=== PATIENT | female | born 1955 | race Caucasian/White ===

== ENCOUNTER → 2017-03-27 | Day surgery (SDC) | payer BC ==
[~2017-03-27] MED LIST: LACTATED RINGER'S 1000 ML INJ 1,000 ML ONE; LIDOCAINE 1%/EPINEPHrine 1:100,000 SOLN 20 ML VIAL ONE; MIDAZOLAM HCL 2 MG/2 ML VIAL ONE; ONDANSETRON HCL 4 MG/2 ML VIAL IV PUSH ONE; PROPOFOL 500 MG/50 ML BTL IV ONE; SODIUM CHLOR 0.9% 250 ML INJ 250 ML IV ONE; VANCOMYCIN HCL 1000 MG VIAL ONE
--- NOTE | 2017-03-27 10:33 | TN ---
cc: RENAE BUTLER,VICENTA MARQUES M.D., M.D. DATE OF SURGERY: 03/27/2017 PREOPERATIVE DIAGNOSIS Left breast microcalcifications. POSTOPERATIVE DIAGNOSIS Left breast microcalcifications. PROCEDURE Left breast needle-localized lumpectomy. SURGEON Dr. Óscar Velez. SIZING [employer] BANDER Celeste Lee, MS III ANESTHESIA TIVA plus local. INDICATIONS This is a very pleasant 61-year-old woman who was discovered to have microcalcifications on screening mammography. She underwent attempted stereotactic biopsy, unfortunately, no microcalcifications were retrieved. She was sent for surgical lumpectomy. INTRAOPERATIVE FINDINGS Successful removal of clip and microcalcifications as seen on specimen mammography by Dr. Estevez of radiology. Specimen was sent to pathology. Estimated blood loss less than 2 mL. DESCRIPTION OF PROCEDURE IN DETAIL The patient was identified as Angelia Givens, taken to the operating room and placed in the supine position following left breast needle localization. Sequential compression devices were placed on bilateral lower extremities. Following IV sedation by Anesthesia the left breast was prepped and draped in usual sterile fashion with Betadine. A time-out procedure was performed. Following completion time-out procedure to everyone's satisfaction within the room a marking pen was used to fanny the proposed incision along the lateral areolar edge along the needle localization entry site. This area was infiltrated with local anesthetic and the incision carried out with scalpel. Hemostasis was controlled with electrocautery. Using combination of sharp dissection and electrocautery the specimen was removed from the surrounding breast tissue, marked with a short stitch superior anterior and a long stitch lateral posterior and sent for imaging. Once the area of concern was noted to be contained within the specimen, specimen was returned to the OR to be sent to pathology. The wound was irrigated with saline. Small bleeding points were controlled with electrocautery. The wound was then closed in layers using 3-0 Vicryl and 4-0 Monocryl. Dressing was applied with Mastisol, half-inch brown Steri-Strips, gauze and Tegaderm. The patient tolerated the procedure without apparent complication. Sponge, needle and instrument counts were correct at the end of the case. MD GISELLA Morton/SEEMA /10:04 AM /10:17 AM
== END | disposition home or self-care (01) ==
LOC: ESDC 07:17
PROVIDERS: ATTEND Surgery Trauma Surgery
DX: R92.0 Mammographic microcalcification found on diagnostic imaging of breast (principal)
CPT/HCPCS: 00400; 19125; 88307; J2250; J2405; J3010; J3370; J7050; J7120